=== PATIENT | male | born 1980 | race Caucasian/White ===

== ENCOUNTER 2016-11-25 06:39 | Emergency (ER) | payer MEDICAID ==
[~2016-11-25] VITALS: Ht 172.7 cm; Wt 75.5 kg
[~2016-11-25 06:39] MED LIST: HYDR-762 PO; ONDA4TAB35 PO
[2016-11-25 06:40] VITALS: Ht 172.7 cm; Wt 75.5 kg
[2016-11-25] MEDS ORDERED: SOD CHLORIDE 0.9% 1,000 ML IV STA (07:30)
[2016-11-25] MEDS ORDERED: ONDANSETRON 4 MG INJ IV STA (07:30)
[2016-11-25] MEDS ORDERED: ACETAMINOPHEN 325 MG TAB PO ONE (07:30)
[2016-11-25 08:09] LABS: URINE BLOOD (Dip) POC Negative (NEGATIVE)
[2016-11-25 08:37] LABS: ADD SCAN DIFF NO
[2016-11-25 08:45] LABS: BASOPHILS % 0.4 % (0.0-2.0); EOSINOPHILS % 0.4 % (0.0-7.0); LYMPHOCYTES # 0.7 10^3/ul (0.8-2.9); LYMPHOCYTES % 14.5 % (15.0-51.0); MEAN CORPUSCULAR HEMOGLOBIN 29.6 pg (29.0-33.0); MONOCYTE # 0.4 10^3/ul (0.3-0.9); MONOCYTES % 8.2 % (0.0-11.0); NEUTROPHIL # 3.8 10^3/ul (1.6-7.5); NEUTROPHILS % 76.3 % (39.0-77.0); PLATELET COUNT 233 10^3/UL (140-415)
[2016-11-25 08:53] LABS: ALBUMIN 4.3 g/dl (3.3-4.9)
[2016-11-25 08:54] LABS: POTASSIUM 3.5 mmol/L (3.5-5.1)
[2016-11-25 08:56] LABS: BILIRUBIN,INDIRECT 0.5 mg/dl (0-1.1); BILIRUBIN,TOTAL 0.5 mg/dl (0.2-1.3); CREATININE 0.82 mg/dl (0.61-1.24)
[2016-11-25 08:57] LABS: ALBUMIN/GLOBULIN RATIO 1.3; CALCIUM 8.7 mg/dl (8.4-10.2); TOTAL PROTEIN 7.6 g/dl (6.1-8.1)
[2016-11-25 09:36] VITALS: BP 106/62; PULSE 82; RESP 16; TEMP 98.3
[2016-11-25] MEDS ORDERED: ONDA4TAB14 PO (09:37)
[2016-11-25] MEDS ORDERED: ACET500C5 PO (09:37)
--- NOTE | 2016-11-25 11:55 | ERD ---
ER Documentation Chief Complaint Date/Time DATE: 11/25/16 TIME: 11:51 Chief Complaint fever , headcahe , abd pain x 1 week HPI 36-year-old male patient with no significant past medical history presents to the ED complaining of fever, headache, abdominal pain, nausea, vomiting, diarrhea that started 1 week ago. States that he has diffuse abdominal pain that that does not radiate. Patient rates his pain as 6 out of 10. Patient reports that he has had a few episodes of nonbilious nonbloody vomiting and a few episodes of non-bloody nonmucoid diarrhea. Patient reports that he has been vomiting a few times per day. Reports that his friend also has similar symptoms. States that he may have eaten a sandwich 1 week ago that caused the symptoms. Denies any chest pain, wheezing, shortness of breath, chills, neck stiffness, chills. Denies any alcohol use. Denies any drug use or smoking. ROS All systems reviewed and are negative except as per history of present illness. Medications Home Meds Active Scripts Ondansetron (Ondansetron Odt) 4 Mg Tab.rapdis, 4 MG PO Q6H Y for NAUSEA AND/OR VOMITING, #10 TAB Prov:MARY WAGGONER PA-C 11/25/16 Acetaminophen* (Tylophen*) 500 Mg Capsule, 1 CAP PO Q6H Y for PAIN AND OR ELEVATED TEMP, #20 CAP Prov:AMRY WGAGONER PA-C 11/25/16 Ondansetron Hcl* (Zofran* ODT) 4 mg -ODT Tab.disper, 4 MG PO Q6 Y for NAUSEA AND /OR VOMITING, #30 TAB Prov:DEBORAH OSPINA MD 08/29/15 Hydrocodone Bit-Acetaminophen* ([place]*) 10-325 Mg Tablet, 1 TAB PO Q6 Y for PAIN , #7 TAB Prov:DEBORAH OSPINA MD 08/29/15 Allergies Allergies: Coded Allergies: No Known Allergy (Unverified , 08/29/15) PMhx/Soc Medical and Surgical Hx: pt denies Medical Hx, pt denies Surgical Hx History of Surgery: No Anesthesia Reaction: No Hx Neurological Disorder: No Hx Respiratory Disorders: No Hx Cardiac Disorders: No Hx Psychiatric Problems: No Hx Miscellaneous Medical Probl: No Hx Alcohol Use: Yes (OCCASIONAL) Hx Substance Use: No Physical Exam Vitals Vital Signs Date Time Temp Pulse Resp B/P Pulse Ox O2 Delivery O2 Flow Rate FiO2 11/25/16 09:36 98.3 82 16 106/62 98 Room Air Physical Exam Const: [id number], well-nourished. In no acute distress. Head: Atraumatic, normocephalic Eyes: Normal Conjunctiva without injection. No purulent discharge. ENT: Normal external ear, nose. Moist oropharynx without tonsillar exudates. Non -erythematous pharynx. Uvula midline. No drooling. No trismus. Neck: No cervical midline tenderness. Full range of motion. No meningismus. No cervical lymphadenopathy. No JVD. Resp: Clear to auscultation bilaterally. No wheezing, rhonchi, rales, or crackles. No accessory muscle use. No retractions. Cardio: Regular rate and rhythm. No murmurs, rubs or gallops. Abd: Soft, nontender, non distended. Normal bowel sounds. No palpable masses. No rebound tenderness. No guarding. Negative McBurney's point. Negative psoas sign. Negative obturator sign. Skin: No petechiae or rashes Back: No midline tenderness. No CVA tenderness. Ext: No cyanosis, or edema. Neur: Awake and alert. Normal gait. Normal coordination. Psych: Normal Mood and Affect Result Diagram: 11/25/16 0750 11/25/16 0750 Results 24 hrs Laboratory Tests Test 11/25/16 07:50 11/25/16 08:11 White Blood Count 5.010^3/ul Red Blood Count 5.4010^6/ul Hemoglobin 16.0g/dl Hematocrit 47.0% Mean Corpuscular Volume 87.0fl Mean Corpuscular Hemoglobin 29.6pg Mean Corpuscular Hemoglobin Concent 34.0g/dl Red Cell Distribution Width 13.0% Platelet Count 60866^3/UL Mean Platelet Volume 11.0fl Neutrophils % 76.3% Lymphocytes % 14.5% Monocytes % 8.2% Eosinophils % 0.4% Basophils % 0.4% Nucleated Red Blood Cells % 0.0/100WBC Neutrophils # 3.810^3/ul Lymphocytes # 0.710^3/ul Monocytes # 0.410^3/ul Eosinophils # 0.010^3/ul Basophils # 0.010^3/ul Nucleated Red Blood Cells # 0.010^3/ul Sodium Level 139mmol/L Potassium Level 3.5mmol/L Chloride Level 100mmol/L Carbon Dioxide Level 26mmol/L Anion Gap 17 Blood Urea Nitrogen 10mg/dl Creatinine 0.82mg/dl Glucose Level 96mg/dl Calcium Level 8.7mg/dl Total Bilirubin 0.5mg/dl Direct Bilirubin 0.00mg/dl Indirect Bilirubin 0.5mg/dl Aspartate Amino Transf (AST/SGOT) 33IU/L Alanine Aminotransferase (ALT/SGPT) 48IU/L Alkaline Phosphatase 71IU/L Total Protein 7.6g/dl Albumin 4.3g/dl Globulin 3.30g/dl Albumin/Globulin Ratio 1.30 Lipase 41U/L Bedside Urine pH (LAB) 6.0 Bedside Urine Protein (LAB) 1+ Bedside Urine Glucose (UA) Negative Bedside Urine Ketones (LAB) Negative Bedside Urine Blood Negative Bedside Urine Nitrite (LAB) Negative Bedside Urine Leukocyte Esterase (L Negative Current Medications Medications (Trade) Dose Ordered Sig/Meme Route PRN Reason Start Time Stop Time Status Last Admin Dose Admin Sodium Chloride (NS) 1,000 ml @ 1,000 mls/hr Q1H STAT IV 11/25/16 07:30 11/25/16 08:29 DC 11/25/16 08:18 Ondansetron HCl (Zofran Inj) 4 mg ONCE STAT IV 11/25/16 07:30 11/25/16 07:33 DC 11/25/16 08:17 Acetaminophen (Tylenol Tab) 650 mg ONCE ONCE PO 11/25/16 07:30 11/25/16 07:33 DC 11/25/16 08:16 Procedures/MDM 36-year-old male patient with no significant past medical history presents to the ED complaining of fever and headache, abdominal pain, nausea, vomiting. Patient is afebrile and nontoxic-appearing. Since patient has had symptoms for 1 week, patient was further evaluated with blood work. Patient was further worked up with CBC, CMP, lipase, UA. Patient's pain and symptoms have improved after treatment with 1 L normal saline, Tylenol, 4 mg IV Zofran. CBC: No leukocytosis. No e/o of systemic infection. No e/o anemia. CMP: No e/o severe acidosis, alkalosis, renal failure, diabetic ketoacidosis, liver disease Lipase within normal limits. Urine: No leukocyte esterase, no nitrites, no hematuria. Patient symptoms are likely due to viral etiology. Patient reports that his friend also has similar symptoms of vomiting and diarrhea. A differential diagnosis considered includes but is not limited to gastritis, GERD, peptic ulcer disease, cholecystitis, choledocholithiasis, cholangitis, pancreatitis, appendicitis, bowel obstruction, ileus, volvulus, nephrolithiasis, pyelonephritis, hepatitis, perforated viscus, diverticulitis, abdominal hernia, acute abdomen, mesenteric ischemia or other emergent conditions. There is low suspicion for diverticulitis, appendicitis, bowel obstruction, or other emergent conditions at this time. Low suspicion for acute abdomen or surgical abdomen. Discharge medications: Zofran, Tylenol Follow up with primary care physician in 1-2 days for referral to moving consultant. Instructed patient to return to the ED sooner for any worsening symptoms. Patient's questions were answered. Patient understood and agreed with discharge plan. Patient discharged stable. Departure Diagnosis: Primary Impression: Abdominal pain Abdominal location: unspecified location Qualified Code: R10.9 - Abdominal pain, unspecified location Additional Impressions: Vomiting and diarrhea Headache Headache type: unspecified Headache chronicity pattern: unspecified pattern Intractability: not intractable Qualified Code: R51 - Nonintractable headache, unspecified chronicity pattern, unspecified headache type Condition: Stable Patient Instructions: Abdominal Pain, Self-Care for Vomiting and Diarrhea, Food Poisoning Or Gastroenteritis (6Y-Adult), Headache, Unspecified Referrals: [facility] YOU HAVE RECEIVED A MEDICAL SCREENING EXAM AND THE RESULTS INDICATE THAT YOU DO NOT HAVE A CONDITION THAT REQUIRES URGENT TREATMENT IN THE EMERGENCY DEPARTMENT. FURTHER EVALUATION AND TREATMENT OF YOUR CONDITION CAN WAIT UNTIL YOU ARE SEEN IN YOUR DOCTORS OFFICE WITHIN THE NEXT 1-2 DAYS. IT IS YOUR RESPONSIBILITY TO MAKE AN APPOINTMENT FOR FOLOW-UP CARE. IF YOU HAVE A PRIMARY DOCTOR --you should call your primary doctor and schedule an appointment IF YOU DO NOT HAVE A PRIMARY DOCTOR YOU CAN CALL OUR PHYSICIAN REFERRAL HOTLINE AT IF YOU CAN NOT AFFORD TO SEE A PHYSICIAN YOU CAN CHOSE FROM THE FOLLOWING [facility] [address] [facility]. [facility] [address] [facility] [address] [facility] [address] [facility] [address] [facility]. [facility]. [address] [facility]. [facility] YOU HAVE RECEIVED A MEDICAL SCREENING EXAM AND THE RESULTS INDICATE THAT YOU DO NOT HAVE A CONDITION THAT REQUIRES URGENT TREATMENT IN THE EMERGENCY DEPARTMENT. FURTHER EVALUATION AND TREATMENT OF YOUR CONDITION CAN WAIT UNTIL YOU ARE SEEN IN YOUR DOCTORS OFFICE WITHIN THE NEXT 1-2 DAYS. IT IS YOUR RESPONSIBILITY TO MAKE AN APPOINTMENT FOR FOLOW-UP CARE. IF YOU HAVE A PRIMARY DOCTOR --you should call your primary doctor and schedule and appointment IF YOU DO NOT HAVE A PRIMARY DOCTOR YOU CAN CALL OUR PHYSICIAN REFERRAL HOTLINE AT . IF YOU CAN NOT AFFORD TO SEE A PHYSICIAN YOU CAN CHOSE FROM THE FOLLOWING [facility] IN[facility]UTIONS: [facility] [address] [place] [address] [facility] [address] [place] [address] [facility] [address] [place] [address] [facility] URGENT CARE/SPECIALTIES Additional Instructions: Llame al doctor MAANA y sara giancarlo KAYLA PARA DENTRO DE 2-3 HAMILTON.Dgale a la secretaria que nosotros le instruimos hacer esta kayla.Avise o llame si heller condicin se empeora antes de la kayla. Regresa aqui si peor o no mejor. MARY WAGGONER PA-C November 25, 2016 11:55 MARY WAGGONER PA-C November 25, 2016 11:55
== END 2016-11-25 10:00 | disposition home or self-care (01) ==
LOC: FTE 06:39
DX: R10.84 Generalized abdominal pain (principal); R11.10 Vomiting, unspecified; R19.7 Diarrhea, unspecified; R51 Headache
CPT/HCPCS: 80053; 81003; 83690; 85025; J2405; J7030; Z7610; 36415; 96374

== ENCOUNTER 2018-01-02 10:43 | Inpatient (IN) | END 2018-01-03 16:30 | disposition home or self-care (01) | DRG 343 ==

== ENCOUNTER 2019-02-16 09:44 | Emergency (ER) | payer MEDICAID ==
[~2019-02-16] VITALS: Ht 165.1 cm; Wt 76.4 kg
[~2019-02-16 09:44] MED LIST changes: +ACET500C5 PO; +DOCU-144 PO; +HYDR-4011 PO; -HYDR-762 PO; -ONDA4TAB35 PO
[2019-02-16 09:48] VITALS: Ht 165.1 cm; Wt 76.4 kg
[2019-02-16] MEDS ORDERED: METOCLOPRAMIDE 10 MG INJ IV STA (10:43)
[2019-02-16] MEDS ORDERED: SOD CHLORIDE 0.9% 1,000 ML IV STA (10:43)
[2019-02-16] MEDS ORDERED: KETOROLAC 30 MG INJ IM STA (10:43)
--- NOTE | 2019-02-16 11:43 | ERD ---
ER Documentation Chief Complaint Chief Complaint ELIZABETH x 1 day with occassional vomiting; neuro intact HPI 38-year-old male presents with headache x1 month, nausea, vomiting, dizziness and an episode of passing out today in the bathroom. He is here with his who helps with the history. She denies any head injury or trauma. She states that he has had a constant headache that nothing seems to improve. She denies any change in altered mental status. Patient denies any past medical history but states that he does not know because he does not have a primary care provider for regular checkups. He has not seen a medical provider in several years. ROS All systems reviewed and are negative except as per history of present illness. Medications Home Meds Active Scripts Docusate Sodium* (Colace*) 100 Mg Capsule, 100 MG PO DAILY, #30 CAP Prov:CALDERON,ABDI V. WHIZZER OPERATOR 01/03/18 Hydrocodone/Acetaminophen ([place] 5-325 Tablet) 1 Each Tablet, 1 EACH PO Q6H for PAIN, #30 TAB Prov:CALDERON,ABDI V. WHIZZER OPERATOR 01/03/18 Acetaminophen* (Tylophen*) 500 Mg Capsule, 1 CAP PO Q6H PRN for PAIN AND OR ELEVATED TEMP, #20 CAP Prov:MARY WAGGONER PA-C 11/25/16 Allergies Allergies: Coded Allergies: No Known Allergy (Unverified , 02/16/19) PMhx/Soc History of Surgery: Yes (appi) Anesthesia Reaction: No Hx Neurological Disorder: No Hx Respiratory Disorders: Yes (HISTORY OF ASTHAMA A CHILD) Hx Cardiac Disorders: No Hx Psychiatric Problems: No Hx Miscellaneous Medical Probl: No Hx Alcohol Use: Yes (SOCIAL DRINKING) Hx Substance Use: No Hx Tobacco Use: No FmHx Family History: No diabetes Physical Exam Vitals Vital Signs Date Temp Pulse Resp B/P (MAP) Pulse Ox O2 O2 Flow FiO2 Time Delivery Rate 02/16/19 97.9 66 18 113/65 99 Room Air 11:46 (81) 02/16/19 97.7 81 20 126/74 98 09:48 (91) Physical Exam Const: No acute distress, active and alert Head: Atraumatic Eyes: Normal Conjunctiva, PERRLA ENT: Normal External Ears, Nose and Mouth. Neck: Full range of motion. Resp: Clear to auscultation bilaterally Cardio: Regular rate and rhythm, Abd: Soft, non tender, non distended. Back: No midline or flank tenderness Ext: No cyanosis, or edema Neur: Awake and alert, CN 2-12 intact, no pronator drift, equal sensation, equal strength 5 out of 5 in all extremes, full range of motion all trams, good heat treatment technician strength, able to follow all commands appropriately Psych: Normal Mood and Affect Result Diagram: 02/16/19 1057 02/16/19 1057 Results 24 hrs Laboratory Tests Test 02/16/19 10:57 White Blood Count 7.6 10^3/ul Red Blood Count 5.39 10^6/ul Hemoglobin 16.1 g/dl Hematocrit 47.1 % Mean Corpuscular Volume 87.4 fl Mean Corpuscular Hemoglobin 29.9 pg Mean Corpuscular Hemoglobin Concent 34.2 g/dl Red Cell Distribution Width 13.1 % Platelet Count 278 10^3/UL Mean Platelet Volume 10.5 fl Immature Granulocytes % 0.100 % Neutrophils % 70.9 % Lymphocytes % 17.9 % Monocytes % 6.3 % Eosinophils % 4.3 % Basophils % 0.5 % Nucleated Red Blood Cells % 0.0 /100WBC Immature Granulocytes # 0.010 10^3/ul Neutrophils # 5.4 10^3/ul Lymphocytes # 1.4 10^3/ul Monocytes # 0.5 10^3/ul Eosinophils # 0.3 10^3/ul Basophils # 0.0 10^3/ul Nucleated Red Blood Cells # 0.0 10^3/ul Sodium Level 141 mmol/L Potassium Level 4.4 mmol/L Chloride Level 106 mmol/L Carbon Dioxide Level 28 mmol/L Anion Gap 7 Blood Urea Nitrogen 11 mg/dl Creatinine 0.83 mg/dl Est Glomerular Filtrat Rate mL/min > 60 mL/min Glucose Level 110 mg/dl Bedside Glucose 107 mg/dL Calcium Level 9.5 mg/dl Current Medications Medications Dose Sig/Meme Start Time Status Last (Trade) Ordered Route PRN Stop Time Admin Dose Reason Admin Sodium 1,000 ml @ Q1H STAT 02/16/19 DC 02/16/19 Chloride 1,000 mls/hr IV 10:43 02/16/19 10:55 11:42 10 mg ONCE STAT 02/16/19 DC 02/16/19 Metoclopramid IV 10:43 02/16/19 10:55 e HCl 10:46 (Reglan) Ketorolac 30 mg ONCE STAT 02/16/19 DC 02/16/19 Tromethamine IM 10:43 02/16/19 10:58 (Toradol) 10:46 Procedures/MDM ED COURSE: The patient was stable throughout ED course. I kept the patient informed of laboratory and diagnostic imaging results throughout the ED course. EKG: Read by Dr. Mello, attending physician. EKG shows normal sinus rhythm at a rate of 70 bpm No arrhythmias, acute ST elevations or T wave changes were noted. PROCEDURES: IV fluids MEDICATIONS GIVEN: Reglan, Toradol, IV fluids Patient tolerated medication well with no adverse reactions. Patient reported improvement in pain. MEDICAL DECISION MAKING: Patient is a 38-year-old male with a list of complaints occluding nausea, vomiting episode, headache. On physical exam patient was neurologically intact with no focal deficits. EKG was done which was unremarkable with normal sinus rhythm. Accu-Chek was done which was 108. All lab work was within normal limi ts. Patient was given Reglan, Toradol and IV fluids during ED stay. On reexamination patient stated that his symptoms had significantly improved. He felt much better afterwards. Patient does not have a primary care provider and was given a list of providers for local communities from the call and establish care. Is told to call and establish care for further follow-up. He is given strict return ED precautions if symptoms worsen. Patient understands and agrees. All questions were answered. Vital signs were reviewed. Patient is afebrile. Patient was not hypoxic. Patient was hemodynamically stable. Patient was told to follow up with primary care for further care and management. DISCHARGE: At this time, patient is stable for discharge and outpatient management. I have instructed the patient to follow-up with their primary care physician in 1-2 days. I have discussed with the patient the possibility of needing to see a specialist for further workup and imaging studies if symptoms persist. I have instructed the patient to promptly return to the ER for any new or worsening symptoms including increased pain, fever, nausea, vomiting, weakness or LOC. The patient expressed understanding of and agreement with this plan. All questions were answered. Home care instructions were provided. Disclaimer: Inadvertent spelling and grammatical errors are likely due to EHR/dictation software use and do not reflect on the overall quality of patient care. Also, please note that the electronic time recorded on this note does not necessarily reflect the actual time of the patient encounter. Departure Diagnosis: Primary Impression: Nausea and vomiting Vomiting type: unspecified Vomiting Intractability: unspecified Qualified Codes: R11.2 - Nausea with vomiting, unspecified Additional Impressions: Dizziness Headache Headache type: unspecified Headache chronicity pattern: chronic headache Intractability: not intractable Qualified Codes: R51 - Headache Condition: Fair Patient Instructions: Self-Care for Headaches, Possible Causes of Dizziness or Fainting, Dizziness (Vertigo) and Balance Problems: Ensuring Your Safety Referrals: [facility] Usted se elizabeth hecho un examen mdico de control que le indica que no est en giancarlo condicin que requiera tratamiento urgente en el Departamento de Emergencia. Un estudio ms profundo y el tratamiento de heller condicin pueden esperar sin ningn riesgo hasta que usted sea atendida/o en el consultorio de heller mdico o giancarlo clnica. Es responsabilidad suya arreglar giancarlo kayla para el seguimiento del sandro. MANEJO DE CONDICIONES NO URGENTES EN EL FUTURO 1) Si usted tiene un mdico de atencin primaria: Usted debera llamar a heller mdico de atencin primaria antes de venir al departamento de emergencia. Despus de las horas de consultorio, heller doctor o heller asociado/a est disponible por telfono. El mdico o enfermero de shereen en el servicio telefnico puede asesorarle por wendy medio para atender el problema, o sandro contrario se puede programar giancarlo kayla. 2) Si usted no tiene un mdico de atencin primaria: Llame al mdico o clnica de referencia que aparece abajo airam las horas de consultorio para hacer giancarlo kayla para que le vean. CLINICAS: [facility] [phone] [address] [facility]., [facility] [phone] [facility] [phone] [facility] [phone] [facility] [phone] [address] [facility]. [phone] [address] . [facility] () Usted se elizabeth hecho un examen mdico de control que le indica que no est en giancarlo condicin que requiera tratamiento urgente en el Departamento de Emergencia. Un estudio ms profundo y el tratamiento de heller condicin pueden esperar sin ningn riesgo hasta que usted sea atendida/o en el consultorio de heller mdico o giancarlo clnica. Es responsabilidad suya arreglar giancarlo kayla para el seguimiento del sandro. MANEJO DE CONDICIONES NO URGENTES EN EL FUTURO 1) Si usted tiene un mdico de atencin primaria: Usted debera llamar a heller mdico de atencin primaria antes de venir al departamento de emergencia. Despus de las horas de consultorio, heller doctor o heller asociado/a est disponible por telfono. El mdico o enfermero de shereen en el servicio telefnico puede asesorarle por wendy medio para atender el problema, o sandro contrario se puede programar giancarlo kayla. 2) Si usted no tiene un mdico de atencin primaria: Llame al mdico o condado institucions de referencia que aparece abajo airam las horas de consultorio para hacer giancarlo kayla para que le vean. SI USTED NO PUEDE PAGAR PARA OPHELIA UN MEDICO puede ir a: [facility] [address] [place] [address] [facility] [address] [place] [address] [facility] [address] [place] [address] [facility] [address] [place] [place], [place] [phone] Additional Instructions: Call 1 of the numbers in the packet for community care clinic in order to establish primary care Llame al doctor MAANA y sara giancarlo KAYLA PARA DENTRO DE 1-2 HAMILTON.Dgale a la secretaria que nosotros le instruimos hacer esta kayla.Avise o llame si heller condicin se empeora antes de la kayla. Regresa aqui si peor o no mejor. PURVI DEE PA-C Feb 16, 2019 11:43
[2019-02-16 11:46] VITALS: BP 113/65; PULSE 66; RESP 18
== END 2019-02-16 11:47 | disposition home or self-care (01) ==
LOC: FTE 09:44
DX: R11.2 Nausea with vomiting, unspecified (principal); R42 Dizziness and giddiness; R51 Headache
CPT/HCPCS: 36415; 80048; 82962; 85025; 93005; 96361; 96372; 96374; J1885; J2765; J7030; Z7502